=== PATIENT | male | born 1940 | race Caucasian/White ===

== ENCOUNTER 2016-06-07 01:58 | Inpatient (IN) | payer OTHER ==
[~2016-06-07] VITALS: Ht 175.3 cm; Wt 89.4 kg
[~2016-06-07 01:58] MED LIST: AMLO5TAB2 PO; ASPI-496 PO; ATOR10TA9 PO; CEFD300C2 PO; CYAN10002 IM; DOCU-30 PO; HYDR12.547 PO; LISI-170 PO; METF500T PO; QUET25TA PO; TEMAZEPAM
[2016-06-07] MEDS ORDERED: MORPHINE SULFATE 4 MG/ML, 1ML IVPush PRN (02:30)
[2016-06-07] MEDS ORDERED: ONDANSETRON 2MG/ML, 2ML IVPush ONE (02:30)
[2016-06-07] MEDS ORDERED: SODIUM CHLORIDE 0.9% 1,000ML IVBOLUS ONE ×2 (02:30→04:00)
[2016-06-07] MEDS ORDERED: SODIUM CHLORIDE FLUSH 10ML SYR IVF ONE (02:30)
[2016-06-07 02:56] LABS: HEMOGLOBIN 12.9 g/dL (13.7-18.0)
[2016-06-07 03:09] LABS: BLOOD UREA NITROGEN 36 mg/dL (7-18)
[2016-06-07] MEDS ORDERED: MORPHINE SULFATE 4 MG/ML, 1ML ONE (03:09)
[2016-06-07] MEDS ORDERED: ONDANSETRON 2MG/ML, 2ML ONE (03:10)
[2016-06-07 03:12] LABS: ASPARTATE AMINO TRANSFERASE 53 U/L (15-37)
[2016-06-07] MEDS ORDERED: METO25TA35 PO (04:03)
[2016-06-07] MEDS ORDERED: APIX5TAB PO (04:25)
[2016-06-07] MEDS ORDERED: HYDR-3341 PO (04:25)
[2016-06-07] MEDS ORDERED: ST JOHNS WART PEG (04:25)
[2016-06-07] MEDS ORDERED: POTA10TA31 PO (04:25)
[2016-06-07] MEDS ORDERED: HYDR-882 PO (04:25)
[2016-06-07 06:05] VITALS: BP 151/87
[2016-06-07 08:05] VITALS: BP 165/90
[2016-06-07] MEDS: SODIUM CHLORIDE 0.9% 1,000 ML IV SCH ×2 (09:08→22:07)
[2016-06-07] MEDS ORDERED: LORazepam 1MG TABLET PO PRN (09:30)
[2016-06-07] MEDS ORDERED: HYDROcodone/APAP 5/325 TABLET PO PRN (09:30)
[2016-06-07] MEDS ORDERED: DOCUSATE 100 MG CAPSULE PO PRN ×2 (09:30)
[2016-06-07] MEDS ORDERED: CYANOCOBALAMIN 1,000 MCG/ML, 1ML IM SCH (09:30)
[2016-06-07] MEDS ORDERED: GUAIFENESIN/DM 200-20MG, 10ML UDC PO PRN (09:30)
[2016-06-07] MEDS ORDERED: ENALAPRILAT 1.25 MG/ML, 2ML IVPush PRN (09:30)
[2016-06-07] MEDS ORDERED: ONDANSETRON ODT 4 MG PO PRN (09:30)
[2016-06-07] MEDS: PIPERACILLIN/TAZO/PMX 3.375GM 50 ML IV SCH ×2 (11:28→17:13)
[2016-06-07] MEDS: APIXABAN 5 MG TABLET PO SCH ×2 (11:28→22:08)
[2016-06-07] MEDS: ASPIRIN 81 MG TABLET EC PO SCH (11:28)
[2016-06-07] MEDS: AMLODIPINE 5 MG TABLET PO SCH ×2 (11:29→22:08)
[2016-06-07] MEDS: QUETIAPINE 25MG TABLET PO SCH ×3 (11:29→22:08)
[2016-06-07] MEDS: METOPROLOL TARTRATE 25 MG TABLET PO SCH (11:29)
[2016-06-07] MEDS: INSULIN REGULAR 100 UNITS/ML, 3ML VIAL SQ-INSULIN SCH ×3 (13:02→22:15)
[2016-06-07 13:12] VITALS: BP 150/65
[2016-06-07] MEDS: ACETAMINOPHEN 325 MG TABLET PO PRN (17:13)
[2016-06-07 19:39] VITALS: BP 125/71
[2016-06-07] MEDS: ATORVASTATIN 10 MG TABLET PO SCH (22:08)
[2016-06-08 00:41] VITALS: BP 164/125
[2016-06-08] MEDS: PIPERACILLIN/TAZO/PMX 3.375GM 50 ML IV SCH ×3 (01:39→22:31)
[2016-06-08 05:40] LABS: HEMOGLOBIN 12.4 g/dL (13.7-18.0)
[2016-06-08 05:47] LABS: BLOOD UREA NITROGEN 25 mg/dL (7-18)
[2016-06-08] MEDS: SODIUM CHLORIDE 0.9% 1,000 ML IV SCH ×2 (06:31→17:00)
[2016-06-08] MEDS: INSULIN REGULAR 100 UNITS/ML, 3ML VIAL SQ-INSULIN SCH ×4 (07:00→21:00)
[2016-06-08 07:10] VITALS: BP 157/95
[2016-06-08] MEDS: METOPROLOL TARTRATE 25 MG TABLET PO SCH (09:32)
[2016-06-08] MEDS: ASPIRIN 81 MG TABLET EC PO SCH (09:32)
[2016-06-08] MEDS: QUETIAPINE 25MG TABLET PO SCH ×3 (09:32→22:31)
[2016-06-08] MEDS: AMLODIPINE 5 MG TABLET PO SCH ×2 (09:32→22:30)
[2016-06-08] MEDS: APIXABAN 5 MG TABLET PO SCH ×2 (09:32→22:31)
[2016-06-08] MEDS ORDERED: VANCOMYCIN PER PHARMACY MC PRN (12:00)
[2016-06-08] MEDS ORDERED: LORazepam 2 MG/ML, 1ML IVPush ONE (12:00)
[2016-06-08] MEDS ORDERED: PHARMACOKINETIC MONITORING MC PRN (12:00)
[2016-06-08 13:48] VITALS: BP 157/74
[2016-06-08] MEDS: VANCOMYCIN 1,600 MG in SODIUM CHLORIDE 0.9% 250 ML IV SCH (16:51)
[2016-06-08] MEDS: ACETAMINOPHEN 325 MG TABLET PO PRN (17:44)
[2016-06-08 18:29] VITALS: BP 152/85
[2016-06-08] MEDS: ATORVASTATIN 10 MG TABLET PO SCH (22:30)
[2016-06-09 00:36] VITALS: BP 187/83
[2016-06-09 00:58] VITALS: BP 165/76
[2016-06-09] MEDS: SODIUM CHLORIDE 0.9% 1,000 ML IV SCH ×2 (05:25→15:37)
[2016-06-09] MEDS: PIPERACILLIN/TAZO/PMX 3.375GM 50 ML IV SCH ×3 (05:37→22:22)
[2016-06-09 05:40] LABS: HEMOGLOBIN 12.7 g/dL (13.7-18.0)
[2016-06-09 05:51] LABS: BLOOD UREA NITROGEN 20 mg/dL (7-18)
[2016-06-09 06:36] VITALS: BP 171/82
[2016-06-09] MEDS: INSULIN REGULAR 100 UNITS/ML, 3ML VIAL SQ-INSULIN SCH ×4 (07:00→20:38)
[2016-06-09] MEDS: ASPIRIN 81 MG TABLET EC PO SCH (08:12)
[2016-06-09] MEDS: QUETIAPINE 25MG TABLET PO SCH ×3 (08:12→20:37)
[2016-06-09] MEDS: METOPROLOL TARTRATE 25 MG TABLET PO SCH (08:12)
[2016-06-09] MEDS: AMLODIPINE 5 MG TABLET PO SCH ×2 (08:12→20:37)
[2016-06-09] MEDS: APIXABAN 5 MG TABLET PO SCH ×2 (08:12→20:36)
[2016-06-09 12:45] VITALS: BP 160/83
[2016-06-09 19:47] VITALS: BP 178/106
[2016-06-09] MEDS: ATORVASTATIN 10 MG TABLET PO SCH (20:37)
[2016-06-09 21:30] VITALS: BP 169/95
[2016-06-10 00:59] VITALS: BP 168/84
[2016-06-10] MEDS: SODIUM CHLORIDE 0.9% 1,000 ML IV SCH ×5 (02:49→23:38)
[2016-06-10 02:56] VITALS: BP 182/94
[2016-06-10] MEDS: VANCOMYCIN 1,600 MG in SODIUM CHLORIDE 0.9% 250 ML IV SCH (04:46)
[2016-06-10 05:18] LABS: HEMOGLOBIN 12.2 g/dL (13.7-18.0)
[2016-06-10 05:25] LABS: BLOOD UREA NITROGEN 22 mg/dL (7-18)
[2016-06-10 05:49] VITALS: BP 176/92
[2016-06-10] MEDS: PIPERACILLIN/TAZO/PMX 3.375GM 50 ML IV SCH ×3 (05:52→23:38)
[2016-06-10 06:37] VITALS: BP 168/88
[2016-06-10] MEDS: INSULIN REGULAR 100 UNITS/ML, 3ML VIAL SQ-INSULIN SCH ×4 (07:00→20:59)
[2016-06-10] MEDS: METOPROLOL TARTRATE 25 MG TABLET PO SCH (08:32)
[2016-06-10] MEDS: QUETIAPINE 25MG TABLET PO SCH ×3 (08:32→23:38)
[2016-06-10] MEDS: AMLODIPINE 5 MG TABLET PO SCH ×2 (08:32→20:28)
[2016-06-10] MEDS: ASPIRIN 81 MG TABLET EC PO SCH (08:33)
[2016-06-10] MEDS: APIXABAN 5 MG TABLET PO SCH ×2 (08:33→20:27)
[2016-06-10] MEDS ORDERED: ZOLEDRONIC ACID 4MG/100ML 100 ML IV ONE (10:00)
[2016-06-10 14:43] VITALS: BP 168/90
[2016-06-10] MEDS ORDERED: FUROSEMIDE 40 MG/4 ML IV ONE (18:00)
[2016-06-10 20:25] VITALS: BP 179/83
[2016-06-10] MEDS: ATORVASTATIN 10 MG TABLET PO SCH (20:27)
[2016-06-11 02:42] VITALS: BP 175/76
[2016-06-11] MEDS: SODIUM CHLORIDE 0.9% 1,000 ML IV SCH ×3 (04:23→16:24)
[2016-06-11 04:26] LABS: HEMOGLOBIN 13.2 g/dL (13.7-18.0)
[2016-06-11 04:33] LABS: ASPARTATE AMINO TRANSFERASE 81 U/L (15-37); BLOOD UREA NITROGEN 18 mg/dL (7-18)
[2016-06-11 07:38] VITALS: BP 176/95
[2016-06-11] MEDS: INSULIN REGULAR 100 UNITS/ML, 3ML VIAL SQ-INSULIN SCH ×4 (09:30→23:27)
[2016-06-11] MEDS: PIPERACILLIN/TAZO/PMX 3.375GM 50 ML IV SCH ×2 (09:32→16:22)
[2016-06-11] MEDS: METOPROLOL TARTRATE 25 MG TABLET PO SCH (09:48)
[2016-06-11] MEDS: ASPIRIN 81 MG TABLET EC PO SCH (09:48)
[2016-06-11] MEDS: APIXABAN 5 MG TABLET PO SCH ×2 (09:48→21:00)
[2016-06-11] MEDS: QUETIAPINE 25MG TABLET PO SCH ×3 (09:48→21:00)
[2016-06-11] MEDS: AMLODIPINE 5 MG TABLET PO SCH ×2 (09:48→21:00)
[2016-06-11 14:00] VITALS: BP 157/88
[2016-06-11] MEDS: VANCOMYCIN 1,600 MG in SODIUM CHLORIDE 0.9% 250 ML IV SCH (17:00)
[2016-06-11] MEDS ORDERED: VANCOMYCIN 1,700 MG in SODIUM CHLORIDE 0.9% 250 ML IV SCH (19:00)
[2016-06-11] MEDS ORDERED: MORPHINE SULFATE 4 MG/ML, 1ML IV PRN (19:00)
[2016-06-11] MEDS ORDERED: FUROSEMIDE 40 MG/4 ML IV ONE (19:00)
[2016-06-11 20:20] VITALS: BP 155/80
[2016-06-11] MEDS: ATORVASTATIN 10 MG TABLET PO SCH (21:00)
[2016-06-12 01:53] VITALS: BP 146/85
[2016-06-12] MEDS: INSULIN REGULAR 100 UNITS/ML, 3ML VIAL SQ-INSULIN SCH (07:00)
[2016-06-12 07:04] VITALS: BP 178/103
[2016-06-12 12:55] VITALS: BP 166/68
[2016-06-12] MEDS ORDERED: SODIUM CHLORIDE 0.9% 1,000 ML IV SCH (13:00)
== END 2016-06-12 16:07 | disposition hospice, home (50) | DRG 177 ==
LOC: ED 04:58 → 4EST 04:59 → ED 05:27 → 3NW 06-10 10:52
PROC: BD11YZZ Fluoroscopy of Esophagus using Other Contrast (ICD-10-PCS; principal; 2016-06-07)
DX: J69.0 Pneumonitis due to inhalation of food and vomit (principal); G93.41 Metabolic encephalopathy; E43 Unspecified severe protein-calorie malnutrition; C79.51 Secondary malignant neoplasm of bone; C77.3 Secondary and unspecified malignant neoplasm of axilla and upper limb lymph nodes; N17.9 Acute kidney failure, unspecified; D68.69 Other thrombophilia; D72.829 Elevated white blood cell count, unspecified; E11.9 Type 2 diabetes mellitus without complications; I10 Essential (primary) hypertension; I48.91 Unspecified atrial fibrillation; E83.52 Hypercalcemia; K80.20 Calculus of gallbladder without cholecystitis without obstruction; Z51.5 Encounter for palliative care; Z80.9 Family history of malignant neoplasm, unspecified; Z85.828 Personal history of other malignant neoplasm of skin; Z87.891 Personal history of nicotine dependence; Z95.0 Presence of cardiac pacemaker; Z68.29 Body mass index [BMI] 29.0-29.9, adult
CPT/HCPCS: 36415; 70450; 70460; 71010; 71260; 74177; 74230; 80048; 80053; 80202; 81003; 82140; 82330; 82550; 82607; 82746; 82962; 83605; 83690; 84145; 84425; 84443; 85025; 85610; 85730; 87040; 96374; J1815; J1940; J2405; J2543; J3370; J3420; J3489; J7030; J7050